=== PATIENT | female | born 1965 | race African-American/Black ===

== ENCOUNTER 2018-04-15 17:14 | Emergency (ER) | payer MEDICAID ==
[~2018-04-15] VITALS: Ht 177.8 cm; Wt 102.3 kg
[~2018-04-15 17:14] MED LIST: UNK HTN MED
[2018-04-15 17:36] VITALS: BP 135/102
== END 2018-04-15 19:30 | disposition left against medical advice (07) ==
LOC: EMS 17:15
DX: R10.9 Unspecified abdominal pain (principal); Z53.21 Procedure and treatment not carried out due to patient leaving prior to being seen by health care provider

== ENCOUNTER 2018-08-19 19:04 | Emergency (ER) | payer OTHER ==
[~2018-08-19] VITALS: Ht 180.3 cm; Wt 103.6 kg
[~2018-08-19 19:04] MED LIST changes: +FOLI1 PO; +LIB25 PO; +MULT-1239 PO; +THIA100T67 PO; -UNK HTN MED
[2018-08-19] MEDS ORDERED: PERTUSS(ACELL),DIPH,TET VAC/PF 0.5 ML VIAL IM ONE (21:30)
[2018-08-19] MEDS ORDERED: BACITRACIN 28.4 GM OINTMENT TP ONE (21:30)
[2018-08-19] MEDS ORDERED: BACITRACIN 0.9 GM PACKET OINTMENT TP ONE (21:45)
[2018-08-19 22:29] VITALS: BP 137/108
== END 2018-08-19 23:07 | disposition home or self-care (01) ==
LOC: EMS 19:04
DX: S16.1XXA Strain of muscle, fascia and tendon at neck level, initial encounter (principal); S80.212A Abrasion, left knee, initial encounter; S80.211A Abrasion, right knee, initial encounter; I10 Essential (primary) hypertension; F12.90 Cannabis use, unspecified, uncomplicated; W01.0XXA Fall on same level from slipping, tripping and stumbling without subsequent striking against object, initial encounter; Y93.01 Activity, walking, marching and hiking; Y92.89 Other specified places as the place of occurrence of the external cause; Y99.8 Other external cause status
CPT/HCPCS: 72040; 90471; 90715

== ENCOUNTER 2020-10-08 05:08 | Emergency (ER) | payer OTHER ==
[~2020-10-08] VITALS: Ht 180.3 cm; Wt 122.7 kg
[~2020-10-08 05:08] MED LIST changes: +FOLI-130 PO; -FOLI1 PO; -THIA100T67 PO; +THIAMINE HCL100 MG PO
[2020-10-08 05:11] VITALS: BP 134/91
[2020-10-08] MEDS ORDERED: SODIUM CHLORIDE 0.9% 1,000 ML IV ONE (06:30)
== END 2020-10-08 07:09 | disposition left against medical advice (07) ==
LOC: EMS 05:10
DX: F10.10 Alcohol abuse, uncomplicated (principal); I10 Essential (primary) hypertension; F12.90 Cannabis use, unspecified, uncomplicated
CPT/HCPCS: 99283

== ENCOUNTER 2021-07-14 20:14 | Emergency (ER) | payer OTHER | END 2021-07-14 21:10 | disposition left against medical advice (07) | LOC: EMS 20:15 | DX: U07.1 COVID-19 (principal); Z53.21 Procedure and treatment not carried out due to patient leaving prior to being seen by health care provider ==

== ENCOUNTER 2021-07-29 08:41 | Emergency (ER) | payer OTHER ==
[~2021-07-29] VITALS: Ht 180.3 cm; Wt 122.7 kg
[2021-07-29 11:15] VITALS: BP 118/80
[2021-07-29] MEDS ORDERED: GABA-1216 PO (12:07)
== END 2021-07-29 12:08 | disposition home or self-care (01) ==
LOC: EMS 08:42
DX: S83.91XA Sprain of unspecified site of right knee, initial encounter (principal); I10 Essential (primary) hypertension; F12.90 Cannabis use, unspecified, uncomplicated; Z79.899 Other long term (current) drug therapy; W18.39XA Other fall on same level, initial encounter; Y93.89 Activity, other specified; Y92.89 Other specified places as the place of occurrence of the external cause; Y99.8 Other external cause status
CPT/HCPCS: 99283